=== PATIENT | male | born 1995 | race Caucasian/White ===

== ENCOUNTER 2020-04-12 11:03 | Outpatient (REF) | payer OTHER, SELFPAY | END 2020-04-12 11:04 | disposition home or self-care (01) | LOC: HO.LAB 11:03 | PROVIDERS: Visit Provider Internal Medicine | DX: Z20.828 Contact with and (suspected) exposure to other viral communicable diseases (principal) | CPT/HCPCS: C9803; U0003 ==

== ENCOUNTER → 2020-09-05 12:31 | Outpatient (BNVA) | payer OTHER, SELFPAY | PROVIDERS: Visit Provider Physician Assistant | DX: S39.012A Strain of muscle, fascia and tendon of lower back, initial encounter (principal); X50.3XXA Overexertion from repetitive movements, initial encounter | CPT/HCPCS: 99203 ==

== ENCOUNTER → 2020-09-08 13:00 | Outpatient (BNVA) | payer OTHER, SELFPAY | PROVIDERS: Visit Provider Physician Assistant Medical | DX: S39.012A Strain of muscle, fascia and tendon of lower back, initial encounter (principal); X58.XXXA Exposure to other specified factors, initial encounter | CPT/HCPCS: 99213 ==

== ENCOUNTER → 2020-09-15 14:32 | Outpatient (BNVA) | payer OTHER, SELFPAY | PROVIDERS: Visit Provider Physician Assistant Medical | DX: S33.9XXA Sprain of unspecified parts of lumbar spine and pelvis, initial encounter (principal); X58.XXXA Exposure to other specified factors, initial encounter | CPT/HCPCS: 99213 ==

== ENCOUNTER → 2020-10-06 15:36 | Outpatient (BNVA) | payer OTHER, SELFPAY | PROVIDERS: Visit Provider Physician Assistant Medical | DX: S33.9XXD Sprain of unspecified parts of lumbar spine and pelvis, subsequent encounter (principal); X58.XXXD Exposure to other specified factors, subsequent encounter; M54.17 Radiculopathy, lumbosacral region | CPT/HCPCS: 99213 ==

== ENCOUNTER 2020-10-18 16:00 | Outpatient (RCR) | payer OTHER, SELFPAY ==
--- NOTE | 2020-09-25 14:59 | MHC.PT.EP ---
[facility] [place] Office [place] [facility] [place] Office [address] Lacy Perez [address] [phone] F: [phone] F: [phone] F: [phone] F: [phone] Physical Therapy Plan of Care Date of Evaluation: Date of Surgery: NA Diagnosis: Lumbar spine strain with radiculopathy Assessment: 25 year old male referred for lumbar spine strain with radiculopathy . Pt injured himself at work about 4 weeks back while transferring boxes from floor to a table which was waist height. On PT examination pt was presented with 5/10 pain in the center of back, decreased trunk ROM, decreased muscle strength, altered posture and gait. He demonstrate extension direction preference. He would benefit from skilled PT to address the aforementioned impairments to increase his tolerance to sitting, standing, walking, sleeping, lifting heavy weight, bending forwards and returning to PLOF. Frequency and Duration: The patient will be seen 2/week for 5 weeks. Short Term Goals: 1. Pt will have 50% decrease in pain so as to increase his tolerance to sitting in 2 weeks. 2. Pt will demonstrated good awareness of sitting posture and be able to check and correct self every 30 minutes in 2 weeks. 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 2. Pt will demonstrate an increase in muscle strength by 1 grade which will enable him to transfer weights from floor (job requirements) without pain in 4 weeks. 3. Pt will be independent with all HEPS for symptoms management and maintenance following d/c in 5 weeks. 4. Pt will return to PLOF in 5 weeks. Treatment Plan: Modalities to reduce pain, spasms and effusion. Manual therapy to restore motion and function. Therapeutic exercise to improve strength and flexibility. Neuromuscular re-education for posture and balance. Therapeutic activities to return to functional activities of daily living. Electronically signed by: Amanda Sorenson, PT, DPT Please sign and return to therapist. Thank you for your referral.
--- NOTE | 2020-10-25 15:47 | MHC.PT.DC ---
[facility] [place] Office [place] Office [place] Office [address] [phone] F: [phone] F: [phone] F: [phone] F: [phone] Physical Therapy Discharge Report Diagnosis: Lumbar spine strain with radiculopathy Date of Surgery: NA Date of Evaluation: 09/25/20 Date of Discharge: 10/25/20 Treatments to Date: 4 Cancellations to Date: 0 No Shows to Date: 0 Discharge Status: Patient Elected to Stop Discharge Summary: Pt called and self d/c himself. He stated he has been feeling better and therefore decided to stop therapy. Electronically signed by: Amanda Sorenson PT DPT Please sign and return to therapist. Thank you for your referral.
== END 2020-10-25 15:49 | disposition other institution (70) ==
LOC: HO.PT 16:00
PROVIDERS: Visit Provider Physician Assistant Medical
DX: S39.012A Strain of muscle, fascia and tendon of lower back, initial encounter (principal); M54.17 Radiculopathy, lumbosacral region
CPT/HCPCS: 97110; 97112; 97140; 97161

== ENCOUNTER → 2020-10-20 14:29 | Outpatient (BNVA) | payer OTHER, SELFPAY | PROVIDERS: Visit Provider Physician Assistant Medical | DX: S33.5XXD Sprain of ligaments of lumbar spine, subsequent encounter (principal); X58.XXXD Exposure to other specified factors, subsequent encounter | CPT/HCPCS: 99213 ==

== ENCOUNTER 2021-05-31 10:51 | Outpatient (REF) | payer OTHER, SELFPAY ==
[2021-05-31 12:11] LABS: COVID-19 Test Negative (Negative)
== END 2021-05-31 10:52 | disposition home or self-care (01) ==
LOC: HO.LAB 10:51
PROVIDERS: Visit Provider Internal Medicine
DX: Z20.822 Contact with and (suspected) exposure to COVID-19 (principal)
CPT/HCPCS: 87635; C9803

== ENCOUNTER 2022-04-23 13:01 | Emergency (ER) | payer OTHER, SELFPAY ==
--- NOTE | ~2022-04-23 | XR_ITS ---
EXAMINATION: XR ANKLE, LEFT CLINICAL INFORMATION: Pain. Twisting injury COMPARISON: Previous left ankle x-ray October 2015 TECHNIQUE: AP, lateral, and mortise views of the left ankle. FINDINGS: Bone alignment is normal. No acute fracture or dislocation. Well-corticated ossification inferior to the medial malleolus likely related to old trauma. Lateral soft tissue swelling. There may be a small ankle joint effusion. XR/XR ankle LT min 3V IMPRESSION: No acute fracture or dislocation. Lateral soft tissue swelling.
[2022-04-23 16:07] VITALS: BP 119/76; PULSE 75; RESP 18; TEMP 36.6; O2SAT 96; BMI 28.7
--- NOTE | 2022-04-23 16:07 | ED_ITS ---
HPI - General Adult General Chief complaint: Extremity Injury, Lower <Lola Brothers MD - Last Filed: 04/23/22 16:09> Stated complaint: L Ankle Injury Work Related 04/23/22 <Lola Brothers MD - Last Filed: 04/23/22 16:09> Time Seen by Provider: 04/23/22 16:39 <Lola Brothers MD - Last Filed: 04/23/22 16:09> Source: patient <FELISA Grady - Last Filed: 04/23/22 16:54> Mode of arrival: ambulatory <FELISA Grady - Last Filed: 04/23/22 16:54> Limitations: no limitations <FELISA Grady - Last Filed: 04/23/22 16:54> History of Present Illness HPI narrative: 27-year-old male presents to the emergency department with complaints of left ankle pain and swelling times a few hours.? 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 Worse with ambulation better at rest.? Patient tells me his been progressively worsening in terms of pain.? Patient was ambulatory into the department with a limp.? Denies numbness or tingling at this time, fevers and chills.? Denies previous injuries to that left ankle, no previous surgeries to the left ankle.? No other injuries. To note patient currently has a workman's comp case for left lower back pain which has been going on for a few months, patient reports that since then he has been having numbness to his foot he is receiving care for this complaint, denies any saddle paresthesias, numbness and tingling at this time, fevers, chills, urinary/bladder incontinence/retention, midline pain, IV drug abuse. <FELISA Grady - Last Filed: 04/23/22 16:54> Related Data Allergies/adverse reactions: Allergies Allergy/AdvReac Type Severity Reaction Status Date / Time No Known Allergies Allergy Unverified 02/10/20 17:35 <Lola Brothers MD - Last Filed: 04/23/22 16:09> Review of Systems Review of Systems: Constitutional : No Weight loss, No Fever, No Chills, No Fatigue, No Malaise ENT/Mouth : No sore throat, No Rhinorrhea Eyes: No Eye Pain, No Swelling, No Redness Cardiovascular : No Chest Pain, No SOB, No Dyspnea on Exertion, No Orthopnea, No Edema, No Palpitations Respiratory : No Cough, No Sputum, No Wheezing Gastrointestinal : No Nausea, No Vomiting, No Diarrhea, No Constipation, No abdominal Pain, No Hematochezia, No Melena Genitourinary : No Dysuria, No Urinary Frequency, No Hematuria, Musculoskeletal : + joint pain, No Myalgias, + Joint Swelling Skin : No Skin Lesions, No rash Neuro : No Weakness, No Numbness, No Dizziness, No Headache Psych : No Anxiety/Panic, No Depression <FELISA Grady - Last Filed: 04/23/22 16:54> Yes all other systems are reviewed and are negative <FELISA Grady - Last Filed: 04/23/22 16:54> [facility] Past Medical History Attestation statement: The following information was validated with the patient. <FELISA Grady - Last Filed: 04/23/22 16:54> Source: old records reviewed and nursing notes reviewed <FELISA Grady - Last Filed: 04/23/22 16:54> Social History Social History: Social History Advance Directives: No Advance Directives Information Provided: Yes <Lola Brothers MD - Last Filed: 04/23/22 16:09> Physical Exam ED Vital Signs: Vital Signs - 24 hr 04/23/22 16:07 Temperature 97.9 F Pulse Rate 75 Respiratory Rate 18 Blood Pressure 119/76 Pulse Oximetry 96 Oxygen Delivery Method Room Air BMI result Body Mass Index 28.7 <Lola Brothers MD - Last Filed: 04/23/22 16:09> Vital Signs - 24 hr 04/23/22 16:07 Temperature 97.9 F Pulse Rate 75 Respiratory Rate 18 Blood Pressure 119/76 Pulse Oximetry 96 Oxygen Delivery Method Room Air BMI result Body Mass Index 28.7 vss <FELISA Grady - Last Filed: 04/23/22 16:54> vss? Appearance: Alert.? Oriented X3.? No acute distress.? Head:? Normocephalic, atraumatic, no step-offs or deformities Eyes: Pupils equal, round and reactive to light.? Neck: Normal inspection.? Neck supple.? CVS: Normal heart rate and rhythm.? Pulses normal.? Respiratory: No respiratory distress.? Breath sounds normal.? Abdomen: Soft and nontender.? Skin: Skin warm and dry.? Normal skin color.? Normal skin turgor.? Extremities: No lower extremity edema.? No calf ttp.? 5/5 strength to bilateral upper and lower extremities 2+ DP,AT,PT pulses equal and bilateral. Left lateral soft tissue swelling . Normal sensation b/l. Normal right ankle. Back:? No midline tenderness, no C-spine tenderness, full range of motion, no CVA tenderness bilaterally Neuro: Oriented X 3.? No motor deficit.? No sensory deficit. CN 2-12 intact. DTRs intact. ? <FELISA Grady - Last Filed: 04/23/22 16:54> Course Course Course Narrative: 27M p/w injured ankle when twisted, no fall. GEN: Appears well, some pain. LEFT ANKLE: swelling, ttp at lateral malleolus XR negative, analgesics given. <Lola Brothers MD - Last Filed: 04/23/22 16:09> Reevaluation(s) Reevaluation #1: Xray w/ sprain educated on rice. advised to return w/ new or worsning sx. Will give ortho referal may require MRI for futher eval. Strict return percautions given outlined on DC <FELISA Grady - Last Filed: 04/23/22 16:54> Time: 16:53 <FELISA Grady - Last Filed: 04/23/22 16:54> Medications Administered Discontinued Medications Generic Name Dose Route Start Last Admin Trade Name Freq PRN Reason Stop Dose Admin Acetaminophen 975 mg 04/23/22 16:08 04/23/22 16:13 Acetaminophen 325 Mg Tablet PO 04/23/22 16:09 975 mg ONCE ONE Administration Ibuprofen 400 mg 04/23/22 16:08 04/23/22 16:13 Ibuprofen 400 Mg Tablet PO 04/23/22 16:09 400 mg ONCE ONE Administration <Lola Brothers MD - Last Filed: 04/23/22 16:09> Medications Administered Discontinued Medications Generic Name Dose Route Start Last Admin Trade Name Roula PRN Reason Stop Dose Admin Acetaminophen 975 mg 04/23/22 16:08 04/23/22 16:13 Acetaminophen 325 Mg Tablet PO 04/23/22 16:09 975 mg ONCE ONE Administration Ibuprofen 400 mg 04/23/22 16:08 04/23/22 16:13 Ibuprofen 400 Mg Tablet PO 04/23/22 16:09 400 mg ONCE ONE Administration <FELISA Grady - Last Filed: 04/23/22 16:54> Medical Decision Making MDM Narrative Medical decision making narrative: 1645 27 year old male presents w/ Lt ankle pain and swellng X few hours s/p rolling his ankle. PE w/ lateral left soft tissue swelling.? NV intact. Ambulating w/ a limp favoring right side. Likley strain/ sprain. No signs of NV compromise. Unlikley fx or dislocation? but will rule out.? Lower back pain chronic in nature patient currently receiving care for this, no new injuries, no saddle paresthesias red flag symptoms unlikely cauda equina or epidural abscess. Plan- imaging. <FELISA Grady - Last Filed: 04/23/22 16:54> Critical Care Time Critical Care Time Critical Care Time: No <FELISA Grady - Last Filed: 04/23/22 16:54> Discharge Plan Discharge Clinical Impression: Ankle sprain and strain <Lola Brothers MD - Last Filed: 04/23/22 16:09> Patient Disposition: Home, Self-Care <Lola Brothers MD - Last Filed: 04/23/22 16:09> Instructions: Ankle Sprain (ED), Crutch Instructions (ED), Sprain (ED), R.I.C.E. Treatment (ED) <Lola Brothers MD - Last Filed: 04/23/22 16:09> Additional Instructions: Take your medications as prescribed. If you were prescribed antibiotics today, it is important that you take your medication to their entirety, do not skip any doses, do not finish them early. Follow-up with your primary care provider this week. Follow up with orthopedics. RICE, use crutches as prescribed Return to the emergency department with new or worsening symptoms. Such as fevers, chills, chest pain, shortness of breath, nausea, vomiting, dizziness, headache, vision changes, lethargy In case of emergency call 911 Take ibuprofen every 6 hours, tylenol every 4 hours for pain or discomfort . XR/XR ankle LT min 3V IMPRESSION: No acute fracture or dislocation. Lateral soft tissue swelling. <Lola Brothers MD - Last Filed: 04/23/22 16:09> Referrals: [facility] [place]Provider Group] - 1 week Physician,None [Primary Care Provider] - 2 days <Lola Brothers MD - Last Filed: 04/23/22 16:09> Stand Alone Forms: Work/School Release <Lola Brothers MD - Last Filed: 04/23/22 16:09>
[2022-04-23] MEDS: Acetaminophen 325 MG TABLET 975 MG PO (16:13)
[2022-04-23] MEDS: Ibuprofen 400 MG TABLET PO (16:13)
--- NOTE | 2022-04-23 16:41 | ED.LOWEXIN ---
HPI - Extremity Injury (Lower) General Chief Complaint: Extremity Injury, Lower Stated Complaint: L Ankle Injury Work Related 04/23/22 Time Seen by Provider: 04/23/22 16:39 Source: patient Mode of arrival: ambulatory Limitations: no limitations History of Present Illness HPI Narrative: 27-year-old male presents to the emergency department with complaints of left ankle pain and swelling times a few hours. 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 Worse with ambulation better at rest. Patient tells me his been progressively worsening in terms of pain. Patient was ambulatory into the department with a limp. Denies numbness or tingling at this time, fevers and chills. Denies previous injuries to that left ankle, no previous surgeries to the left ankle. No other injuries. To note patient currently has a workman's comp case for left lower back pain which has been going on for a few months, patient reports that since then he has been having numbness to his foot he is receiving care for this complaint, denies any saddle paresthesias, numbness and tingling at this time, fevers, chills, urinary/bladder incontinence/retention, midline pain, IV drug abuse. Related Data Allergies Allergy/AdvReac Type Severity Reaction Status Date / Time No Known Allergies Allergy Unverified 02/10/20 17:35 Review of Systems Review of Systems: Constitutional : No Weight loss, No Fever, No Chills, No Fatigue, No Malaise ENT/Mouth : No sore throat, No Rhinorrhea Eyes: No Eye Pain, No Swelling, No Redness Cardiovascular : No Chest Pain, No SOB, No Dyspnea on Exertion, No Orthopnea, No Edema, No Palpitations Respiratory : No Cough, No Sputum, No Wheezing Gastrointestinal : No Nausea, No Vomiting, No Diarrhea, No Constipation, No abdominal Pain, No Hematochezia, No Melena Genitourinary : No Dysuria, No Urinary Frequency, No Hematuria, Musculoskeletal : + joint pain, No Myalgias, + Joint Swelling Skin : No Skin Lesions, No rash Neuro : No Weakness, No Numbness, No Dizziness, No Headache Psych : No Anxiety/Panic, No Depression All other systems reviewed and are negative Yes all other systems are reviewed and are negative [facility] Past Medical History Attestation statement: The following information was validated with the patient. Source: old records reviewed and nursing notes reviewed Social History Social History Advance Directives: No Advance Directives Information Provided: Yes Physical Exam Vital Signs: Vital Signs: Last Vital Signs Temp 97.9 F 04/23/22 16:07 Pulse 75 04/23/22 16:07 Resp 18 04/23/22 16:07 BP 119/76 04/23/22 16:07 Pulse Ox 96 04/23/22 16:07 O2 Del Method 04/23/22 16:07 BMI result Body Mass Index 28.7 vss Appearance: Alert.? Oriented X3.? No acute distress.? Head: Normocephalic, atraumatic, no step-offs or deformities Eyes: Pupils equal, round and reactive to light.? Neck: Normal inspection.? Neck supple.? CVS: Normal heart rate and rhythm.? Pulses normal.? Respiratory: No respiratory distress.? Breath sounds normal.? Abdomen: Soft and nontender.? Skin: Skin warm and dry.? Normal skin color.? Normal skin turgor.? Extremities: No lower extremity edema.? No calf ttp. 5/5 strength to bilateral upper and lower extremities 2+ DP,AT,PT pulses equal and bilateral. Left lateral soft tissue swelling . Normal sensation b/l. Normal right ankle. Back: No midline tenderness, no C-spine tenderness, full range of motion, no CVA tenderness bilaterally Neuro: Oriented X 3.? No motor deficit.? No sensory deficit. CN 2-12 intact. DTRs intact. Course Reevaluation(s) Reevaluation #1: X-ray of left ankle showing lateral soft tissue swelling consistent with ankle sprain. No fractures or dislocations. Will be given an Santiago wrap and crutches. Educated on rice, will discharge home with ortho follow-up. Advised to return with new or worsening symptoms, educated on worrisome signs and symptoms. Comfortable discharge. Time: 16:45 Medications Administered Discontinued Medications Generic Name Dose Route Start Last Admin Trade Name Freq PRN Reason Stop Dose Admin Acetaminophen 975 mg 04/23/22 16:08 04/23/22 16:13 Acetaminophen 325 Mg Tablet PO 04/23/22 16:09 975 mg ONCE ONE Administration Ibuprofen 400 mg 04/23/22 16:08 04/23/22 16:13 Ibuprofen 400 Mg Tablet PO 04/23/22 16:09 400 mg ONCE ONE Administration MDM - Extremity Injury (Lower) MDM Narrative Medical decision making narrative: 1645 27 year old male presents w/ Lt ankle pain and swellng X few hours s/p rolling his ankle. PE w/ lateral left soft tissue swelling. NV intact. Ambulating w/ a limp favoring right side. Likley strain/ sprain. No signs of NV compromise. Unlikley fx or dislocation but will rule out. Lower back pain chronic in nature patient currently receiving care for this, no new injuries, no saddle paresthesias red flag symptoms unlikely cauda equina or epidural abscess. Plan- imaging. Medical Records Attestation: I reviewed the patient's medical records. Lab Data Attestation: I reviewed the patient's lab results. Critical Care Time Critical Care Time Critical Care Time: No Discharge Plan Discharge Clinical Impression: Ankle sprain and strain Patient Disposition: Home, Self-Care Instructions: Ankle Sprain (ED), Crutch Instructions (ED), Sprain (ED), R.I.C.E. Treatment (ED) Additional Instructions: Take your medications as prescribed. If you were prescribed antibiotics today, it is important that you take your medication to their entirety, do not skip any doses, do not finish them early. Follow-up with your primary care provider this week. Follow up with orthopedics. RICE, use crutches as prescribed Return to the emergency department with new or worsening symptoms. Such as fevers, chills, chest pain, shortness of breath, nausea, vomiting, dizziness, headache, vision changes, lethargy In case of emergency call 911 Take ibuprofen every 6 hours, tylenol every 4 hours for pain or discomfort . XR/XR ankle LT min 3V IMPRESSION: No acute fracture or dislocation. Lateral soft tissue swelling. Referrals: Physician,None [Primary Care Provider] - 2 days [facility] [place]Provider Group] - 1 week Stand Alone Forms: Work/School Release
== END 2022-04-23 16:58 | disposition home or self-care (01) ==
PROVIDERS: Emergency Provider Student in an Organized Health Care Education/Training Program
DX: S93.402A Sprain of unspecified ligament of left ankle, initial encounter (principal); X50.1XXA Overexertion from prolonged static or awkward postures, initial encounter; Y93.9 Activity, unspecified; Y92.9 Unspecified place or not applicable; Y99.0 Civilian activity done for income or pay
CPT/HCPCS: 73610; 99283

== ENCOUNTER 2022-04-30 07:59 | Emergency (ER) | payer OTHER, SELFPAY ==
[2022-04-30 08:12] VITALS: BP 127/82; PULSE 75; RESP 14; TEMP 36.1; O2SAT 100; BMI 28.7
--- NOTE | 2022-04-30 10:08 | ED_ITS ---
HPI - Extremity Injury (Lower) General Chief Complaint: Extremity Injury, Lower Stated Complaint: L foot redness Time Seen by Provider: 04/30/22 10:03 Source: patient Mode of arrival: ambulatory (With crutches) Limitations: no limitations History of Present Illness HPI Narrative: Patient is a 27-year-old male presents to the emergency department requesting an extended work note. He was seen in the emergency department 04/23/2022 for an ankle sprain. He was advised to follow-up with orthopedics. His appointment is scheduled for 05/06/2022. His work note that he was initially given only covered him until today. Continues to have pain, swelling, inability to bear weight on the left ankle. Overall it is improving but he does not feel well enough to return. Denies any numbness tingling or cold sensation to the foot. Related Data Allergies Allergy/AdvReac Type Severity Reaction Status Date / Time No Known Allergies Allergy Unverified 02/10/20 17:35 Review of Systems Review of Systems: Musculoskeletal: Positive ankle pain and swelling; left, as noted in HPI Yes all other systems are reviewed and are negative [facility] Past Medical History Attestation statement: The following information was validated with the patient. Source: old records reviewed Social History Social History Advance Directives: No Advance Directives Information Provided: No Physical Exam Vital Signs: Vital Signs: Last Vital Signs Temp 96.9 F 04/30/22 08:12 Pulse 75 04/30/22 08:12 Resp 14 04/30/22 08:12 BP 127/82 04/30/22 08:12 Pulse Ox 100 04/30/22 08:12 O2 Del Method 04/30/22 08:12 BMI result Body Mass Index 28.7 Appearance: Alert.?Oriented to person, place and time. No acute distress.?Normal affect. Neck: Normal inspection.? Neck supple.?? CVS: Heart sounds normal. Normal heart rate and rhythm.? Pulses normal.?? Respiratory: No respiratory distress.? Lung sounds clear to auscultation bilaterally?? Skin: Skin warm and dry.? Normal skin color.? Extremities: Localized swelling to left ankle. 2+ DP/PT pulse bilaterally. Resolving bruise inferior to medial malleoli, bruising to anterior ankle.? No calf ttp? Neuro: Moves all extremities spontaneously. Sensation intact bilaterally. Ambulates with use of crutches, minimal weight-bearing to the left. Medical Decision Making Medical Decision Making MDM Narrative: Patient is a 27-year-old male with no pertinent past medical history presenting to emergency department for re-evaluation of an ankle sprain requiring a work note. Has not yet followed up with Orthopedics as an appointment scheduled. Extremity is neurovascularly intact distally at this time. Advised continued R.I.C.E., and acetaminophen/ibuprofen as needed for pain, crutches/weight- bearing as tolerated. Provided with a work note to cover until evaluation from Orthopedics. All questions answered. Patient discharged in stable condition. Discharge Plan Discharge Clinical Impression: Ankle sprain and strain Patient Disposition: Home, Self-Care Stand Alone Forms: Work/School Release
--- NOTE | 2022-04-30 10:29 | PC.NURSE ---
PT AMBULATORY INTO [facility] WITH CRUTCHES. REPORTS THAT HE HAS AN APPT WITH ORTHO ON 05/06. STATES THAT HE STILL DOES NOT FEEL THAT HE CAN ATTEND WORK. EVALUATED BY PROVIDER. PLAN IS FOR DC HOME WITH NOTE TO BE OUT UNTIL THE WHEN HE SEES THE ORTHO PROVIDER. PT AGREEABLE TO PLAN.
== END 2022-04-30 10:31 | disposition home or self-care (01) ==
PROVIDERS: Emergency Provider Emergency Medicine
DX: S93.402A Sprain of unspecified ligament of left ankle, initial encounter (principal); X58.XXXA Exposure to other specified factors, initial encounter; Y93.9 Activity, unspecified; Y92.9 Unspecified place or not applicable; Y99.9 Unspecified external cause status
CPT/HCPCS: 99282

== ENCOUNTER → 2022-06-10 12:55 | Outpatient (BNVA) | payer OTHER, SELFPAY | PROVIDERS: Visit Provider Physician Assistant | DX: S93.402D Sprain of unspecified ligament of left ankle, subsequent encounter (principal) | CPT/HCPCS: 99212 ==

== ENCOUNTER 2022-10-01 03:06 | Emergency (ER) | payer OTHER, SELFPAY ==
[2022-10-01 03:07] VITALS: BP 132/78; PULSE 77; RESP 18; TEMP 36.2; O2SAT 95; BMI 24.4
--- NOTE | 2022-10-01 04:05 | PC.NURSE ---
Pt aox4 resting at the bedside in no apparent distress. Reports right ear pain, 7/10, that started yesterday. No drainage or swelling noted on the right ear. No decrease in hearing. Pending physician agustin. Pt aware.
--- NOTE | 2022-10-01 04:58 | ED.EAR ---
HPI - Ear Problem General Chief complaint: Ear Problems Stated complaint: ?Ear infection, right ear pain Time Seen by Provider: 10/01/22 04:07 History of Present Illness HPI Narrative: Patient is a 27-year-old male presents today with having earache on the right side. Symptoms ongoing for 2 days. Feels pressure in the ear. No fever no chills. No systemic complain of. Patient tried to use some ear drops but to no avail. Related Data Previous Rx's Medication Instructions Recorded azithromycin 250 mg tablet See Rx Instructions PO .COMPLEX 10/01/22 upper resp infection #6 tabs ibuprofen 400 mg tablet 400 mg PO Q6H PRN pain #20 tabs 10/01/22 Allergies Allergy/AdvReac Type Severity Reaction Status Date / Time No Known Allergies Allergy Unverified 06/10/22 13:02 Review of Systems Review of Systems: Positive right ear pain. No change in voice. No difficulty breathing. Yes all other systems are reviewed and are negative PMFSH Past Medical History Attestation statement: The following information was validated with the patient. Social History Social History Patient Tobacco Use Status: Never used Tobacco Smoked in Last 30 Days: No Use of substances other than those prescribed or required for medical reasons: No Advance Directives: No Advance Directives Information Provided: Yes Current occupational status: employed Current occupation: [employer] Physical Exam Vital Signs: Vital Signs: Last Vital Signs Temp 97.2 F 10/01/22 03:07 Pulse 77 10/01/22 03:07 Resp 18 10/01/22 03:07 BP 132/78 10/01/22 03:07 Pulse Ox 95 10/01/22 03:07 O2 Del Method Room Air 10/01/22 03:07 BMI result Body Mass Index 24.4 Appearance: Alert. Oriented X3. No acute distress. Eyes: Pupils equal, round and reactive to light. ENT: Pharynx normal. TM on the right side intact. Minimal redness noted. No bulging eardrums. Question fluid behind the eardrum. No loss of landmarks. No mastoid tenderness. No tenderness on palpation of the parotid Neck: Normal inspection. Neck supple. No lymph nodes noted. No crepitus CVS: Normal heart rate and rhythm. Pulses normal. Normal S1 and S2 Respiratory: No respiratory distress. Breath sounds normal. No Wheezing. No rales Abdomen: Soft and nontender. No rigidity. No distention. good BS x4 Skin: Skin warm and dry. Normal skin color. Normal skin turgor. Extremities: No lower extremity edema. Neurovascular intact to all extremities. No Lacerations. No Rash Neuro: Oriented X 3. No motor deficit. No sensory deficit. Moving all extermities. No slurred speech Medical Decision Making Medical Decision Making MDM Narrative: Well-appearing no acute distress. Question very early otitis media, congestion will give patient Z-Darin and Motrin. In stable condition. Differential Diagnosis Malignant otitis media, prior tightest, otitis externa Discharge Plan Discharge Clinical Impression: Otitis media Patient Disposition: Home, Self-Care Instructions: Ear Infection (ED) Prescriptions: New azithromycin 250 mg tablet See Rx Instructions .ROUTE .COMPLEX Qty: 6 0RF Rx Instructions: take 500 mg today (day 1), then 250 mg for 4 days (days 2-5) ibuprofen 400 mg tablet 400 mg PO Q6H PRN (Reason: pain) Qty: 20 0RF Referrals: Physician,None [Primary Care Provider] - 10/08/22
== END 2022-10-01 05:13 | disposition home or self-care (01) ==
PROVIDERS: Emergency Provider Emergency Medicine Emergency Medical Services
DX: H66.91 Otitis media, unspecified, right ear (principal); H92.01 Otalgia, right ear
CPT/HCPCS: 99283

== ENCOUNTER 2025-02-23 11:28 | Outpatient (AMB) | payer OTHER, SELFPAY ==
--- NOTE | 2025-02-23 11:41 | MHC.PC.OV ---
Vital Signs 02/23/25 11:43 Height 5 ft 10.08 in Weight 199 lb 8 oz BMI 28.6 BP 100/64 Blood Pressure Location Rt brachial Position Sitting Pulse 83 Pulse Source Pulse Oximeter Temp 97.1 F Temp Source Temporal Artery Scan Pulse Oximetry (%) 97 Oxygen Delivery Method Room Air Intake Visit Reasons: establish care Intake Note: Patient is a new patient here to establish care for High protein in urine. Transferring care from [facility] ([facility]). Medical records have been requested and have not received. Flavoring Oil Filterer Required: No Collection Manager: Not Required per policy Accompanied by: Self / Same As Patient Allergies No Known Allergies Allergy (Verified 02/23/25 11:54) Medication List - Last Reconciled 02/23/25 by DARIANA Mendoza No Known Home Meds Tobacco use date assessed: 02/23/25 Dental Screening Dental Screen Date: 02/23/25 Did you have a dental visit in the last 12 months?: Yes Did you have a dental problem in the last 6 months where you did not have access to dental care?: No Was dental information given to patient?: Patient has dentist HPI establish care HPI Details [facility]CP: [facility] Last visit:about 9 years Last PE: same Specialist: NO OBGYN:n/a Past medical history: Medications: Family HX:paternal grandfather DM, paternal aunt HTN Problem: reports seasonal allergies. The patient is a 29-year-old male presenting with nausea and vomiting. He reports nausea and vomiting triggered by certain foods, with no specific identifiable triggers, occurring less frequently now than initially. The patient denies heartburn, diarrhea, constipation, or bloating, but notes dizziness after extended physical exertion, likely due to dehydration. He drinks about four bottles of water daily, which may be inadequate for his activity level. Family history includes diabetes mellitus on the paternal side and hypertension in his father and aunt. He has no personal history of chronic diseases, is not on medication, and has no allergies. The patient is sexually active with one partner and does not smoke or frequently consume alcohol. 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 Reports that when he eat certain things he will vomiting after, reports before couple months ago this was happening every day. Reports this is happening maybe two times a week currently. 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 1. Little interest or pleasure in doing things: not at all 2. Feeling down, depressed, or hopeless: not at all 3. Trouble falling or staying asleep, or sleeping too much: not at all 4. Feeling tired or having little energy: not at all 5. Poor appetite or overeating: not at all 6. Feeling bad about yourself - or that you are a failure or have let yourself or your family down: not at all 7. Trouble concentrating on things, such as reading the newspaper or watching television: not at all 8. Moving or speaking so slowly that other people could have noticed. Or the opposite - being so fidgety or restless that you have been moving around a lot more than usual: not at all 9. Thoughts that you would be better off or of hurting yourself in some way: not at all Total score: 0 Depression Screening Interpretation: Negative Depression Screening Done: Yes 41566 - PHQ-9 Billing: Yes Source: Developed by Drs. Jair Dumont, Rochelle Siddiqui, Mikhail Alonzo and colleagues, with an educational rasheeda from [employer]. Thrive Questionnaire Date Thrive assessed: 02/23/25 I am a: Patient What is your living situation today?: I have a steady place to live Within the past 12 months, did the food you bought not last and you didn't have the money to get more?: I choose not to answer this question Within the past 12 months, did you worry whether your food would run out before you got money to buy more?: I choose not to answer this question Do you have trouble paying for medicines?: I choose not to answer this question Do you have trouble getting transportation to medical appointments?: I choose not to answer this question Do you have trouble paying your heating and electricity bill?: I choose not to answer this question Do you have trouble taking care of your child, family member or friend?: I choose not to answer this question Do you have trouble with day-to-day activities such as bathing, preparing meals, shopping, managing finances, etc.?: No Are you currently unemployed and looking for a job?: I choose not to answer this question Are you interested in more education?: I choose not to answer this question Please select the resources that you would like help with: None Currently or been in a relationship where the following occur: I choose not to answer THRIVE Score: 0 AUDIT C Alcohol Use Questionnaire (AUDIT-C) 1. How often do you have a drink containing alcohol?: Never Total Score: 0 MARCELINA-7 AMB Questionnaire MARCELINA-7 Date MARCELINA - 7 assessed: 02/23/25 Feeling nervous, anxious, or on edge: 0 = Not at all Not being able to stop or control worryin = Not at all Worrying too much about different things: 0 = Not at all Trouble relaxin = Not at all Being so restless that it is hard to sit still: 0 = Not at all Becoming easily annoyed or irritable: 1 = Several days Feeling afraid as if something awful might happen: 0 = Not at all Total MARCELINA-7 score (0-4 normal; 5-9 mild; 10-14 moderate; 15-21 severe): 1 Source: Developed by Drs. Jair Dumont, Rochelle Siddiqui, Mikhail Alonzo and colleagues, with an educational rasheeda from [employer]. MARCELINA-7 Assessment Billing MARCELINA-7 Assessment Tool: MARCELINA-7 Assessment 27498 Review of Systems Const Denies headache(s) Eyes Denies loss of vision ENT Denies vertigo, Reports dizziness (After extensive workup), Denies headache(s) and Denies sore throat Card Denies chest pain, Denies leg edema and Denies lightheadedness Resp Denies cough, Denies hemoptysis and Denies wheezing GI Denies abdominal pain, Denies melena, Denies constipation, Denies diarrhea, Reports nausea (After certain foods) and Reports vomiting (After certain foods) Denies dysuria, Denies urinary frequency and Denies urinary urgency Musc Denies arthralgias, Denies joint swelling, Denies numbness and Denies tingling Neuro Denies Abnormal speech present, Denies behavioral changes, Denies vertigo, Reports dizziness (After extensive workup), Denies headache(s), Denies loss of vision, Denies memory loss, Denies numbness and Denies tingling Psych Denies anxiety, Denies behavioral changes, Denies depression, Denies memory loss and Denies panic attacks José/Lymph Denies easy bleeding and Denies easy bruising Aller/Immun Denies wheezing Physical exam (Primary Care) Vital Signs: Last Vital Signs Temp 97.1 F 02/23/25 11:43 Pulse 83 02/23/25 11:43 BP 100/64 02/23/25 11:43 Pulse Ox 97 02/23/25 11:43 Oxygen Delivery Method Room Air 02/23/25 11:43 BMI result Body Mass Index 28.6 Tobacco/Smoking Status: Tobacco use Status Tobacco use date assessed 02/23/25 02/23/25 11:52 Patient Tobacco Use Status Never used Tobacco 02/23/25 11:52 e-Cigarette/Vaping Use Never Used 02/23/25 11:52 PHQ-9: PHQ-9 Score PHQ-9: Total score 0 02/23/25 12:01 Depression Screening Interpretation: Negative Thrive Assessment: Date of Thrive Assessment Date Thrive assessed 02/23/25 02/23/25 11:52 Currently or been in a relationship where the following occur: I choose not to answer Const General: healthy appearing, no acute distress, alert and awake Nutritional Appearance: well nourished Orientation/consciousness: oriented to person, oriented to place and oriented to time HENMT Ears: TM's normal bilaterally General nose exam: Normal nasal mucous membranes and turbinates present Eyes Conjunctivae: conjunctivae normal Sclerae: sclerae normal Pupils: Equal, round and reactive pupils present Neck Neck: Yes no lymphadenopathy and Yes no JVD Thyroid: Thyroid normal Carotids: no bruits Resp Effort & Inspection: normal respiratory effort and not tachypneic Auscultation: no crackles, no rales, no rhonchi and no wheezes Cardio Rate: regular rate Rhythm: regular rhythm Heart sounds: no murmurs and normal S1 and S2 GI Palpation (GI): Soft to palpation, nontender, no hepatomegaly and no splenomegaly Auscultation: normal bowel sounds General: Yes no CVA tenderness Back/Spine/Pelvis Back: no CVA tenderness Skin General skin exam: no rashes or lesions noted and dry skin Neuro General: oriented to person, oriented to place and oriented to time Cranial nerves: Yes Equal, round and reactive pupils present Speech: No Abnormal speech present Gait exam (Neuro): Normal gait present Motor exam (neuro): no tremor noted Extrem Right upper extremity: full ROM Left upper extremity: full ROM Right lower extremity: full ROM; no edema Left lower extremity: full ROM; no edema Psych Mental Status: mental status grossly normal Speech and movement: Normal speech and movement present Affect: normal affect Attitude: cooperative Thought process: Normal thought process present Coding Level of Care Code New Pt Level 4 (45981) Diagnoses Dizziness R42 Postprandial vomiting R11.10 Postprandial abdominal bloating R14.0 Proteinuria, unspecified type R80.9 Proteinuria type: unspecified Screening for STDs (sexually transmitted diseases) Z11.3 Additional Codes MARCELINA-7 Assessment Billing - MARCELINA-7 Assessment Tool: MARCELINA-7 Assessment 23252 ([id number]) PHQ-9 - 87642 - PHQ-9 Billing: Yes ([id number]) Time Spent (min) 39 Assessment & Plan Assessment & Plan (1) Dizziness: Code(s): R42 - Dizziness and giddiness Category: Medical Plan: The patient reports dizziness after extensive workouts. Denies being dizzy in other situations. Denies any associated symptoms. Expressed to the patient that this could be due to dehydration if he is not well hydrated while working out. The patient admits that he could drink more water. We will obtain labs to further evaluate. (2) Postprandial vomiting: Code(s): R11.10 - Vomiting, unspecified Category: Medical Plan: The patient experiences nausea and vomiting with certain foods, and omeprazole has been prescribed to address possible acid reflux. The patient will be monitored for changes in symptoms. (3) Postprandial abdominal bloating: Code(s): R14.0 - Abdominal distension (gaseous) Category: Medical Plan: Discussed with the patient extensively about FODMAP diet. Encouraged the patient to obtain labs 1st then initiate the FODMAP diet to see which foods are causing the sensitivity. (4) Proteinuria: Code(s): R80.9 - Proteinuria, unspecified Category: Medical Qualifiers: Proteinuria type: unspecified Qualified Code(s): R80.9 - Proteinuria, unspecified Plan: Proteinuria was identified, and a urinalysis will be conducted to exclude urinary tract infection. Additional lab tests will evaluate kidney function and screen for diabetes mellitus. (5) Screening for STDs (sexually transmitted diseases): Code(s): Z11.3 - Encounter for screening for infections with a predominantly sexual mode of transmission Category: Medical Plan: STD tests ordered Plan The patient to obtain labs and return in 7 weeks for complete physical Orders: Orders Hemoglobin A1c 02/23/25 R11.10 - Vomiting, unspecified, R14.0 - Abdominal distension (gaseous), R80.9 - Proteinuria, unspecified, Z00.00 - Encounter for general adult medical examination without abnormal findings Complete Blood Count Auto Diff 02/23/25 R11.10 - Vomiting, unspecified, R14.0 - Abdominal distension (gaseous), R80.9 - Proteinuria, unspecified, Z00.00 - Encounter for general adult medical examination without abnormal findings Comprehensive [place]. Panel Fast 02/23/25 R11.10 - Vomiting, unspecified, R14.0 - Abdominal distension (gaseous), R80.9 - Proteinuria, unspecified, Z00.00 - Encounter for general adult medical examination without abnormal findings TSH reflex Free T4 02/23/25 R11.10 - Vomiting, unspecified, R14.0 - Abdominal distension (gaseous), R80.9 - Proteinuria, unspecified, Z00.00 - Encounter for general adult medical examination without abnormal findings Lipid Panel 02/23/25 R11.10 - Vomiting, unspecified, R14.0 - Abdominal distension (gaseous), R80.9 - Proteinuria, unspecified, Z00.00 - Encounter for general adult medical examination without abnormal findings Transglutaminase Ab IgG Today R14.0 - Abdominal distension (gaseous) HIV Ab/Ag 02/23/25 R11.10 - Vomiting, unspecified, R14.0 - Abdominal distension (gaseous), R80.9 - Proteinuria, unspecified, Z00.00 - Encounter for general adult medical examination without abnormal findings, Z11.3 - Encounter for screening for infections with a predominantly sexual mode of transmission CT NG by PCR Urine 02/23/25 R11.10 - Vomiting, unspecified, R14.0 - Abdominal distension (gaseous), R80.9 - Proteinuria, unspecified, Z00.00 - Encounter for general adult medical examination without abnormal findings, Z11.3 - Encounter for screening for infections with a predominantly sexual mode of transmission Syphilis Screen 02/23/25 R11.10 - Vomiting, unspecified, R14.0 - Abdominal distension (gaseous), R80.9 - Proteinuria, unspecified, Z00.00 - Encounter for general adult medical examination without abnormal findings, Z11.3 - Encounter for screening for infections with a predominantly sexual mode of transmission UA CC w/rflx Micro + Cult 02/23/25 R11.10 - Vomiting, unspecified, R14.0 - Abdominal distension (gaseous), R80.9 - Proteinuria, unspecified, Z00.00 - Encounter for general adult medical examination without abnormal findings Vitamin D 25-OH Total 02/23/25 R11.10 - Vomiting, unspecified, R14.0 - Abdominal distension (gaseous), R80.9 - Proteinuria, unspecified, Z00.00 - Encounter for general adult medical examination without abnormal findings Medications: New omeprazole 40 mg PO DAILY 30 caps 3RF
[2025-02-23 11:43] VITALS: BP 100/64; PULSE 83; TEMP 36.2; O2SAT 97; BMI 28.6
--- OUTSIDE RECORDS SUMMARY | 2025-02-23 13:05 | XMS_ITS | Clinical Summary ---
Author Organization [employer] Address [address] [place] [address] [address] [place] [address] Care Team Providers Care Workers' Compensation Mediator Name Role Phone Unavailable Primary Care Provider Unavailabl e Social History Tobacco Use Types Packs/Day Years Used Date Smoking Tobacco: Never Assessed Sex and Gender Information Value Date Recorded Sex Assigned at Male 03/25/2022 10:20 AM EDT Legal Sex Male 10:20 AM EDT Gender Identity Male 03/25/2022 10:20 AM EDT Sexual Orientation Straight 03/25/2022 10 :20 AM EDT Plan of Treatment Health Maintenance Due Date Last Done Comments Depression Screening 1997 HIV Screening 1997 SDOH Screening 1997 Disability Screening 1997 Alcohol/Substance Use Screening 2009 Tobacco Screening 2009 Family Planning (PISQ) 2012 HPV Vaccines (1 - Male 3-dose series) 2012 Hepatitis C Screening 2015 DTaP/Tdap/Td Vaccines (1 - Tdap) 2016 Hepatitis B Vaccines (1 of 3 - 19+ 3-dose series) 2016 Dental X-Ray: Full Mouth 02/21/2020 02/19/2017, 11/2014 Dental Oral Exam 03/01/2022 08/29/2021, , 08/18/2017, Additional history exists Dental X-Ray: Bitewings 08/30/2022 08/30/19, 11/17/2018, 02/19/2017, Additional history exists Dental Prophylaxis 09/24/2022 03/26/2022, 0 08/29/2021, 07/13/2019, Additional history exists COVID-19 Vaccine ( - season) 2025 Influenza Vaccine (#1) 2025 Zoster Vaccines (1 of 2) 2047 RSV Patients and Patients Aged 60 years or older (1 - 1-dose 75+ series) 2072 HIB Vaccines Aged Out No longer eligi ble based on patient's age to complete this topic Hepatitis A Vaccines Aged Out No long er eligible based on patient's age to complete this topic IPV Vaccines Aged Out No longer eligi ble based on patient's age to complete this topic Meningococcal B Vaccine Aged Out No l onger eligible based on patient's age to complete this topic Meningococcal Vaccine Aged Out No marley jaswinder eligible based on patient's age to complete this topic Pneumococcal Vaccine: Pediatrics (0 to 5 Years) and At-Risk Patients (6 to 49) Years Aged Out No longer eligible based on patient's age to complete this topic RSV under 20 months Aged Out No longe r eligible based on patient's age to complete this topic Rotavirus Vaccines Aged Out No longer eligible based on patient's age to complete this topic Procedures Procedure Name Priority Date/Time Associated Diagnosis Comments PROPHYLAXIS - ADULT Routine 03/26/2022 1 2:00 AM EDT BITEWINGS - 4 RADIOGRAPHIC IMAGES Routine 08/29/2021 12:00 AM EDT PERIODIC ORAL EVALUATION - ESTABLISHED PATIENT Routine 08/29/2021 12:00 AM EDT INTRAORAL - COMPLETE SERIES OF RADIOGRAPHIC IMAGES Routine 02/19/2017 12:00 AM EDT from Last 3 Months or Most Recently Relevant to Health Maintenance Insurance [facility] MEDICAID STAND ADULT
--- OUTSIDE RECORDS SUMMARY | 2025-02-23 13:05 | XMS_ITS | Encounter Summary ---
Author Organization [employer] [facility] Address [address] [place] [address] [address] [place] [address] Care Team Providers Care Neuropsychologist Name Role Phone Unavailable Primary Care Provider Unavailabl e Encounter Details Date Type Department Care Team (Latest Contact Info) Description 01/06/2019 Abstract C CONVERSIONS Dental, Provider, DDS Social History Tobacco Use Types Packs/Day Years Used Date Smoking Tobacco: Never Assessed Sex and Gender Information Value Date Recorded Sex Assigned at Male 03/25/2022 10:20 AM EDT Legal Sex Male 10:20 AM EDT Gender Identity Male 03/25/2022 10:20 AM EDT Sexual Orientation Straight 03/25/2022 10 :20 AM EDT documented as of this encounter Plan of Treatment Not on file documented as of this encounter Visit Diagnoses Not on filedocumented in this encounter
--- OUTSIDE RECORDS SUMMARY | 2025-02-23 13:05 | XMS_ITS | Encounter Summary ---
Author Organization [employer] [facility] Address [address] [place] [address] [address] [place] [address] Care Team Providers Care Recordings Librarian Name Role Phone Unavailable Primary Care Provider Unavailabl e Encounter Details Date Type Department Care Team (Latest Contact Info) Description 08/29/2021 Abstract C CONVERSIONS Dental, Provider, DDS Social [...]
== END 2025-02-23 12:22 | disposition home or self-care (01) ==
LOC: HO.HMCH 11:29
DX: R42 Dizziness and giddiness (principal); R11.10 Vomiting, unspecified; R14.0 Abdominal distension (gaseous); R80.9 Proteinuria, unspecified; Z11.3 Encounter for screening for infections with a predominantly sexual mode of transmission

== ENCOUNTER → 2025-02-23 11:28 | Outpatient (BNVA) | payer OTHER, SELFPAY | DX: R42 Dizziness and giddiness (principal); R14.0 Abdominal distension (gaseous); R11.2 Nausea with vomiting, unspecified; R80.9 Proteinuria, unspecified | CPT/HCPCS: 96127 ==

== ENCOUNTER 2025-02-24 09:01 | Outpatient (REF) | payer OTHER, SELFPAY ==
[2025-02-24 09:16] LABS: MANUAL DIFF FLAG NO
[2025-02-24 09:34] LABS: Hematocrit 48.0 % (42.0-52.0); Hemoglobin 16.6 g/dl (14.0-18.0); Imm Gran Abs Auto 0.01 X10*3/uL (0.00-0.03); Imm Gran Pct Auto 0.2 % (0.0-0.4); Lymphocytes Absolute Auto 1.7 X10*3/uL (1.2-4.9); Mean Corpuscular HGB Conc 34.6 g/dl (31.0-36.0); Mean Corpuscular Hemoglobin 30.4 pg (27.0-33.0); Mean Corpuscular Volume 87.9 fL (80.0-98.0); NRBC Abs Auto 0.000 X10*3/uL (0.0-0.012); NRBC Pct Auto 0.0 /100WBC (0.0-0.2); Platelet Count 223 X10*3/uL (160-400); Red Blood Count 5.46 X10*6/uL (4.60-5.80); White Blood Count 4.5 X10*3/uL (4.8-10.8)
[2025-02-24 09:46] LABS: Hemoglobin A1C 149.8606 umol/L
--- OUTSIDE RECORDS SUMMARY | 2025-02-24 09:46 | XMS_ITS | Encounter Summary ---
Author Organization [employer] [facility] Address [address] [place] [address] [address] [place] [address] Care Team Providers Care Production Reproduction Manager Name Role Phone Unavailable Primary Care Provider [...]
--- OUTSIDE RECORDS SUMMARY | 2025-02-24 09:46 | XMS_ITS | Clinical Summary ---
Author Organization [employer] Address [address] [place] [address] [address] [place] [address] Care Team Providers Care Electronic Prepress System Operator Name Role Phone Unavailable Primary Care Provider [...] Most Recently Relevant to Health Maintenance Insurance [facility] MEDICAID STAND ADULT
--- OUTSIDE RECORDS SUMMARY | 2025-02-24 09:46 | XMS_ITS | Encounter Summary ---
Author Organization [facility] Address [address] [place] [address] [address] [place] [address] Care Team Providers Care Theater Teacher Name Role Phone Unavailable Primary Care Provider [...]
[2025-02-24 09:47] LABS: Appearance Urine Clear; Glucose Urine UA Negative (Negative); PH 7.0 (5.0-9.0); Specific Gravity - Urine 1.025 (1.005-1.025)
[2025-02-24 10:11] LABS: Alanine Aminotransferase 51 U/L (0-40); Albumin Level 4.9 g/dL (3.5-5.0); Alkaline Phosphatase 84 U/L (39-117); Anion Gap 11 (12-20); Aspartate Amino Transferase 25 U/L (5-37); Blood Urea Nitrogen 14 mg/dL (9-16); Calcium 9.6 mg/dL (8.4-10.2); Carbon Dioxide 29 mmol/L (22-29); Chloride 106 mmol/L (96-108); Cholesterol 212 mg/dL (<200); Estimated Glomerular Filt Rate > 60; HDL Cholesterol 45 mg/dL (>40); Potassium 4.3 mmol/L (3.3-5.1); Sodium 142 mmol/L (135-145); Total Protein 7.8 g/dL (6.5-8.0); Triglycerides 152 mg/dL (<150)
[2025-02-24 10:19] LABS: HIV Num 1 0.09 S/CO (0.00-0.99)
[2025-02-24 10:20] LABS: Syphilis Screen Nonreactive (Nonreactive)
[2025-02-24 11:40] LABS: CT PCR Urine NOT DETECTED (Not Detect.); NG PCR Urine NOT DETECTED (Not Detect.)
[2025-02-25 21:33] LABS: Transglutaminase Ab IgG <1.0 U/mL
== END 2025-02-24 09:02 | disposition home or self-care (01) ==
LOC: HO.LAB 09:01
DX: Z00.00 Encounter for general adult medical examination without abnormal findings (principal); Z11.3 Encounter for screening for infections with a predominantly sexual mode of transmission; Z13.6 Encounter for screening for cardiovascular disorders; Z13.29 Encounter for screening for other suspected endocrine disorder; Z13.1 Encounter for screening for diabetes mellitus; R14.0 Abdominal distension (gaseous); R11.10 Vomiting, unspecified; R80.9 Proteinuria, unspecified
CPT/HCPCS: 80053; 80061; 81003; 82306; 83036; 84443; 85025; 86364; 86780; 87389; 87491; 87591

== ENCOUNTER 2025-04-15 09:15 | Outpatient (AMB) | payer OTHER, SELFPAY ==
--- OUTSIDE RECORDS SUMMARY | 2025-04-15 09:36 | XMS_ITS | Clinical Summary ---
Author Organization [employer] Address [address] [place] [address] [address] [place] [address] Care Team Providers Care Otolaryngology Physician Name Role Phone Unavailable Primary Care Provider [...] Additional history exists COVID-19 Vaccine ( - 2024- season) 2025 Influenza Vaccine (#1) 2025 Zoster [...] Most Recently Relevant to Health Maintenance Insurance [facility] MEDICAID STAND ADULT
--- OUTSIDE RECORDS SUMMARY | 2025-04-15 09:36 | XMS_ITS | Encounter Summary ---
Author Organization [employer] [facility] Address [address] [place] [address] [address] [place] [address] Care Team Providers Care Carpentry Supervisor Name Role Phone Unavailable Primary Care Provider [...]
--- OUTSIDE RECORDS SUMMARY | 2025-04-15 09:36 | XMS_ITS | Encounter Summary ---
Author Organization [facility] Address [address] [place] [address] [address] [place] [address] Care Team Providers Care Supervisor [employer] Name Role Phone Unavailable Primary Care Provider [...]
--- NOTE | 2025-04-15 09:37 | A.OFFPC_ITS ---
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 Required: No Accompanied by: Self / Same As Patient Allergies No Known Allergies Allergy (Verified 04/15/25 09:46) Medication List - Last Reconciled 04/15/25 by DARIANA Mendoza omeprazole 40 mg PO DAILY Tobacco use date assessed: 04/15/25 Dental Screening Dental Screen Date: 04/15/25 Did you have a dental visit in the last 12 months?: Yes Did you have a dental problem in the last 6 months where you did not have access to dental care?: No Was dental information given to patient?: Patient has dentist HPI HPI Comments History of Present Illness Details History of Present Illness Dentist: up to date, November, Eye: He 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 Snellen: Right: Left: Corrected vision: no STI screening: completed Colonoscopy:n/a Pap Smer:n/a Flu: not usually COVID: x2 Tdap:not sure when he had this done, but would like to hold off for now Diet:regular diet, but reports that most of the foods that were mentioned on the high cholesterol list are on his menu. Exercise: Reports that he used to prior to straining his back The patient is a 30 year old individual presenting for a follow-up visit to review lab results and for general health maintenance. Recent lab work showed a complete blood count (CBC) with a white blood cell count that is slightly on the lower side, which is considered a normal variant for some individuals and not of immediate concern. Chemistry panel revealed good kidney function, normal electrolytes, and a normal HbA1c. Abnormal lab findings include an elevated liver enzyme, with a level of 51 where the normal range is 0-40. Potential causes were explored, including alcohol use (a few times a month), and Tylenol (Tidin) use (infrequently, about two pills), which were considered unlikely to be the cause. The patient confirmed recent weight gain, which is also a potential contributor. The lipid panel was notable for hyperlipidemia, with triglycerides slightly elevated at 152 mg/dL (target <150) and an LDL cholesterol of 137 mg/dL (target <100). Additionally, the patient was found to have a low vitamin D level, which is a common finding. The patient previously had stomach issues, which have since improved. Testing for gluten sensitivity was negative. The patient reports back pain, but the location is not consistent with a liver or kidney source, suggesting a muscular origin, possibly related to workouts or weight gain. Regarding health maintenance, the patient has had two COVID-19 vaccines and a flu shot a few years ago. The patient's tetanus immunization is due every 10 years and may still be current from high school. The patient has seen a dentist in the last year but has not had a recent eye exam and reports blurry vision in the morning. Health Maintenance Immunization status was reviewed, including flu, COVID-19, and tetanus. Due to reports of blurry vision in the morning, a comprehensive eye exam with an home health clinician was strongly recommended. A follow-up visit is scheduled for three months to review progress on diet and exercise and to re-check labs. The patient was instructed to complete the repeat lab work prior to the next appointment. Social History - Alcohol Use: Drinks a few times per mo nth. - Exercise: The patient has stopped work ing out but previously engaged in weightlifting, including deadlifts. - Diet: Acknowledges a diet that include s foods high in cholesterol such as fried foods, red meat, pork, and shellfish. Results - CBC: White blood cell count is slightl y low. - Comprehensive Metabolic Panel (CMP): K idney function, electrolytes, calcium, and bilirubin are normal; one liver enzyme is elevated at 51 (range 0-40). - HbA1c: Normal. - Lipid Panel: Triglycerides 152 mg/dL, LDL cholesterol 137 mg/dL. - Vitamin D: Low. - Gluten sensitivity serology: Negative. - STD panel: Negative. - Urinalysis: Normal. 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 Depression Screening Interpretation: Negative Depression Screening Done: Yes Source: Developed by Drs. Jair Dumont, Rochelle Siddiqui, Mikhail Alonzo and colleagues, with an educational rasheeda from [employer]. Thrive Questionnaire Date Thrive assessed: 02/23/25 I am a: Patient What is your living situation today?: I have a steady place to live Within the past 12 months, did the food you bought not last and you didn't have the money to get more?: I choose not to answer this question Within the past 12 months, did you worry whether your food would run out before you got money to buy more?: I choose not to answer this question Do you have trouble paying for medicines?: I choose not to answer this question Do you have trouble getting transportation to medical appointments?: I choose not to answer this question Do you have trouble paying your heating and electricity bill?: I choose not to answer this question Do you have trouble taking care of your child, family member or friend?: I choose not to answer this question Do you have trouble with day-to-day activities such as bathing, preparing meals, shopping, managing finances, etc.?: No Are you currently unemployed and looking for a job?: I choose not to answer this question Are you interested in more education?: I choose not to answer this question Please select the resources that you would like help with: None Currently or been in a relationship where the following occur: I choose not to answer THRIVE Score: 0 AUDIT C Alcohol Use Questionnaire (AUDIT-C) 2. How many drinks containing alcohol do you have on a typical day when you are drinking?: 1 or 2 3. How often do you have six or more drinks on one occasion?: Never Total Score: 0 MARCELINA-7 AMB Questionnaire MARCELINA-7 Date MARCELINA - 7 assessed: 02/23/25 Source: Developed by Rober Clarket B.W. Artur, Mikhail Alonzo and colleagues, with an educational rasheeda from [employer]. Review of Systems Narrative Review of Systems - Constitutional: Reports recent weight gain. - Eyes: Reports blurry vision upon waking. - Gastrointestinal: Reports previous stomach issues which have since improved. - Musculoskeletal: Reports intermittent back pain. Const Denies headache(s) Eyes Denies loss of vision ENT Denies vertigo, Reports dizziness (After extensive workup), Denies headache(s) and Denies sore throat Card Denies chest pain, Denies leg edema and Denies lightheadedness Resp Denies cough, Denies hemoptysis and Denies wheezing GI Denies abdominal pain, Denies melena, Denies constipation, Denies diarrhea, Denies nausea and Denies vomiting Denies dysuria, Denies urinary frequency and Denies urinary urgency Musc Denies arthralgias, Denies joint swelling, Denies numbness and Denies tingling Neuro Denies Abnormal speech present, Denies behavioral changes, Denies vertigo, Reports dizziness (After extensive workup), Denies headache(s), Denies loss of vision, Denies memory loss, Denies numbness and Denies tingling Psych Denies anxiety, Denies behavioral changes, Denies depression, Denies memory loss and Denies panic attacks José/Lymph Denies easy bleeding and Denies easy bruising Aller/Immun Denies wheezing Physical exam (Primary Care) Vital Signs: Last Vital Signs Pulse 87 04/15/25 09:40 Resp 18 04/15/25 09:40 BP 126/68 04/15/25 09:40 Pulse Ox 96 04/15/25 09:40 Oxygen Delivery Method Room Air 04/15/25 09:40 BMI result Body Mass Index 29.1 Tobacco/Smoking Status: Tobacco use Status Tobacco use date assessed 04/15/25 04/15/25 09:44 Patient Tobacco Use Status Never used Tobacco 04/15/25 09:38 e-Cigarette/Vaping Use Never Used 04/15/25 09:38 Depression Screening Interpretation: Negative Thrive Assessment: Date of Thrive Assessment Date Thrive assessed 02/23/25 04/15/25 09:38 Currently or been in a relationship where the following occur: I choose not to answer Narrative Physical Exam - Lungs: Clear to auscultation bilaterally. - Abdomen/Back: Elicited mild tenderness on palpation of the back. Const General: healthy appearing, no acute distress, alert and awake Nutritional Appearance: well nourished Orientation/consciousness: oriented to person, oriented to place and oriented to time HENMT Ears: TM's normal bilaterally General nose exam: Normal nasal mucous membranes and turbinates present Eyes Conjunctivae: conjunctivae normal Sclerae: sclerae normal Pupils: Equal, round and reactive pupils present Neck Neck: Yes no lymphadenopathy and Yes no JVD Thyroid: Thyroid normal Carotids: no bruits Resp Effort & Inspection: normal respiratory effort and not tachypneic Auscultation: no crackles, no rales, no rhonchi and no wheezes Cardio Rate: regular rate Rhythm: regular rhythm Heart sounds: no murmurs and normal S1 and S2 GI Palpation (GI): Soft to palpation, nontender, no hepatomegaly and no splenomegaly Auscultation: normal bowel sounds General: Yes no CVA tenderness Back/Spine/Pelvis Back: no CVA tenderness Skin General skin exam: no rashes or lesions noted and dry skin Neuro General: oriented to person, oriented to place and oriented to time Cranial nerves: Yes Equal, round and reactive pupils present Speech: No Abnormal speech present Gait exam (Neuro): Normal gait present Motor exam (neuro): no tremor noted Deep tendon reflexes (DTR's): Right triceps reflex intensity grade: 2+, Left triceps reflex intensity grade: 2+, Rt Biceps (C5, C6): 2+, Left biceps reflex intensity grade: 2+, Right brachioradialis reflex intensity grade: 2+, Left brachioradialis reflex intensity grade: 2+, Right patellar reflex intensity grade: 2+ and Left patellar reflex intensity grade: 2+ Extrem Right upper extremity: full ROM Left upper extremity: full ROM Right lower extremity: full ROM; no edema Left lower extremity: full ROM; no edema Psych Mental Status: mental status grossly normal Speech and movement: Normal speech and movement present Affect: normal affect Attitude: cooperative Thought process: Normal thought process present Results Reviewed Results Reviewed: Laboratory Tests 02/24/25 02/24/25 09:08 09:14 WBC 4.5 L RBC 5.46 Hgb 16.6 Hct 48.0 MCV 87.9 MCH 30.4 MCHC 34.6 RDW 13.1 Plt Count 223 Sodium 142 Potassium 4.3 Chloride 106 Carbon Dioxide 29 Anion Gap 11 L BUN 14 Creatinine 0.90 Estimated GFR > 60 Fasting Glucose 96 Estimat Average Glucose 105 Hemoglobin A1c % 5.3 Calcium 9.6 Total Bilirubin 0.7 AST 25 ALT 51 H Alkaline Phosphatase 84 Total Protein 7.8 Albumin 4.9 Triglycerides 152 H Cholesterol 212 H LDL Cholesterol, Calc 137 H HDL Cholesterol 45 25-OH Vitamin D Total 19.7 L TSH 1.21 Urine Color Yellow Urine Appearance Clear Urine pH 7.0 Ur Specific [place] 1.025 Urine Protein Negative Urine Glucose (UA) Negative Urine Ketones Negative Urine Blood Negative Urine Nitrite Negative Ur Leukocyte Esterase Negative Ur N gonorrhoeae DNA (PCR) NOT DETECTED Tiss Transglutamin IgG <1.0 T.pallidum Ab (EIA) Nonreactive Ur Chlamydia DNA (PCR) NOT DETECTED HIV 1&2 Ab/P24 Ag 4thGn Nonreactive Coding Level of Care Code Est Pt Prev Care 18-39y(86232) Diagnoses Annual physical exam Z00.00 Dizziness R42 Postprandial vomiting R11.10 Postprandial abdominal bloating R14.0 Proteinuria, unspecified type R80.9 Proteinuria type: unspecified Screening for STDs (sexually transmitted diseases) Z11.3 Mixed hyperlipidemia E78.2 Hyperlipidemia type: mixed hyperlipidemia Elevated liver enzymes R74.8 Leukopenia, unspecified type D72.819 Leukopenia type: unspecified Vitamin D deficiency E55.9 Bilateral low back pain without sciatica, unspecified chronicity M54.50 Chronicity: unspecified Back pain laterality: bilateral Sciatica presence: without sciatica Time Spent (min) 37 Assessment & Plan Assessment & Plan (1) Annual physical exam: Code(s): Z00.00 - Encounter for general adult medical examination without abnormal findings Category: Medical Plan: Preventative guidelines and recent labs reviewed with the patient (2) Dizziness: Code(s): R42 - Dizziness and giddiness Category: Medical Plan: The patient reports dizziness after extensive workouts at previous visit. Denies being dizzy in other situations. Denies any associated symptoms. Expressed to the patient that this could be due to dehydration if he is not well hydrated while working out. The patient admits that he could drink more water. Reports that he has not been working out lately. We will continue to monitor. (3) Postprandial vomiting: Code(s): R11.10 - Vomiting, unspecified Category: Medical Plan: The patient experiences nausea and vomiting with certain foods, and omeprazole was prescribed to address possible acid reflux. The patient denies vomiting, reports that the medication has been working and he feels significantly better. Continue omeprazole 40 mg daily. (4) Postprandial abdominal bloating: Code(s): R14.0 - Abdominal distension (gaseous) Category: Medical Plan: Discussed with the patient extensively about FODMAP diet. Patient was negative for gluten sensitivity. He also reports resolution of symptoms since started on omeprazole. (5) Proteinuria: Code(s): R80.9 - Proteinuria, unspecified Category: Medical Qualifiers: Proteinuria type: unspecified Qualified Code(s): R80.9 - Proteinuria, unspecified Plan: No protein in the patient current urine. Labs were negative for diabetes and the patient kidney function is within normal limits. We will continue to monitor (6) Screening for STDs (sexually transmitted diseases): Code(s): Z11.3 - Encounter for screening for infections with a predominantly sexual mode of transmission Category: Medical Plan: STD tests ordered at previous visit all came back negative. (7) HLD (hyperlipidemia): Code(s): E78.5 - Hyperlipidemia, unspecified Category: Medical Qualifiers: Hyperlipidemia type: mixed hyperlipidemia Qualified Code(s): E78.2 - Mixed hyperlipidemia Plan: The patient has a mildly elevated liver enzyme at 51, which is suspected to be related to recent weight gain and hyperlipidemia. The plan is to repeat labs in three months, at which time additional tests such as an iron panel will be added to rule out other potential causes. It is expected that if weight loss and cholesterol improvement occur, the liver enzymes will normalize. (8) Elevated liver enzymes: Code(s): R74.8 - Abnormal levels of other serum enzymes Category: Medical Plan: The patient has a mildly elevated liver enzyme at 51, which is suspected to be related to recent weight gain and hyperlipidemia. The plan is to repeat labs in three months, at which time additional tests such as an iron panel will be added to rule out other potential causes. It is expected that if weight loss and cholesterol improvement occur, the liver enzymes will normalize. (9) WBC decreased: Code(s): D72.819 - Decreased white blood cell count, unspecified Category: Medical Qualifiers: Leukopenia type: unspecified Qualified Code(s): D72.819 - Decreased white blood cell count, unspecified Plan: encouraged adequate hydration will monitor cbc (10) Vitamin D deficiency: Code(s): E55.9 - Vitamin D deficiency, unspecified Category: Medical Plan: The patient has a low vitamin D level. This is an easily correctable issue, and the patient was advised to take [id number]-[id number] vitamin D supplements. (11) Low back pain: Code(s): M54.50 - Low back pain, unspecified Category: Medical Qualifiers: Chronicity: unspecified Back pain laterality: bilateral Sciatica presence: without sciatica Qualified Code(s): M54.50 - Low back pain, unspecified Plan: The patient reports back pain, which is assessed to be likely musculoskeletal or from muscle strain, possibly from improper exercise mechanics or weight gain. Advised to focus on proper stretching, hydration, and to avoid exercises that place pressure on the back, such as deadlifts. Recommended taking magnesium oxide 400 mg at night to help with muscle relaxation and sleep. Plan Plan Patient was informed and verbally consented to the use of an ambient scribe for clinic note documentation during this visit. 1. Hyperlipidemia The patient's LDL cholesterol is elevated at 137 mg/dL and triglycerides are 152 mg/dL. The plan is to manage this with dietary changes to avoid starting medication, given the patient's young age. Counseled the patient to limit foods high in cholesterol, such as fried foods, red meat, pork, and shellfish, and provided a food list. A repeat lipid panel will be checked in three months to monitor progress. 2. Elevated Liver Enzymes The patient has a mildly elevated liver enzyme at 51, which is suspected to be related to recent weight gain and hyperlipidemia. The plan is to repeat labs in three months, at which time additional tests such as an iron panel will be added to rule out other potential causes. It is expected that if weight loss and cholesterol improvement occur, the liver enzymes will normalize. 3. Vitamin D Deficiency The patient has a low vitamin D level. This is an easily correctable issue, and the patient was advised to take ftmf-jkh-mbeyrig vitamin D supplements. 4. Back Pain The patient reports back pain, which is assessed to be likely musculoskeletal or from muscle strain, possibly from improper exercise mechanics or weight gain. Advised to focus on proper stretching, hydration, and to avoid exercises that place pressure on the back, such as deadlifts. Recommended taking magnesium oxide 400 mg at night to help with muscle relaxation and sleep. 5. Gastrointestinal Distress The patient's prior stomach issues have improved, and testing for gluten sensitivity was negative. To identify any remaining dietary triggers, the patient was counseled on following a low-FODMAP diet. The patient was instructed to eliminate food items known to cause symptoms and then reintroduce them one by one to pinpoint sensitivities. Discussion Notes I reviewed the patient's lab results in detail, focusing on the elevated liver enzymes, high cholesterol, and low vitamin D. I explained that the liver enzyme elevation is most likely related to the recent weight gain and high cholesterol, and we will do further testing in three months to ensure no other cause is missed. I emphasized that dietary modification is the preferred first step for managing the high cholesterol, given the patient's age, to avoid the need for medication. I provided a list of high-cholesterol foods to reduce. We discussed the low-FODMAP diet as a method to identify triggers for gastrointestinal symptoms, and I instructed the patient on how to perform the elimination and reintroduction process. I also recommended vitamin D supplements for the deficiency and magnesium at night for muscle relaxation related to back pain. I strongly recommended a visit to an home health clinician for a comprehensive eye exam due to the patient's report of blurry vision, explaining the importance of proactive care. We scheduled a follow-up appointment in three months, with repeat labs to be drawn beforehand to track the patient's progress. Patient Instructions - Make dietary changes to lower your cholesterol. - Avoid or limit fried foods, red meat, pork, egg yolks, and shellfish. - Take an ucui-gnv-clqkkrh vitamin D supplement daily. - To help with back muscle soreness, you can take magnesium oxide 400 mg at night. - For your stomach issues, Google low-FODMAP diet and follow the instructions to find out which foods might be causing your symptoms. - Schedule an eye exam with an home health clinician because you mentioned your vision is blurry in the morning. - Resume exercise, focusing on cardio, stretching, and staying hydrated. - Return for a follow-up visit in 3 months. - Please get your blood tests done before your next appointment so we can review the results together. Orders: Orders Comprehensive [place]. Panel Fast 3 Months D72.819 - Decreased white blood cell count, unspecified, E78.5 - Hyperlipidemia, unspecified, R11.10 - Vomiting, unspecified, R14.0 - Abdominal distension (gaseous), R74.8 - Abnormal levels of other serum enzymes Vitamin D 25-OH Total 3 Months D72.819 - Decreased white blood cell count, unspecified, E78.5 - Hyperlipidemia, unspecified, R11.10 - Vomiting, unspecified, R14.0 - Abdominal distension (gaseous), R74.8 - Abnormal levels of other serum enzymes Ferritin 3 Months D72.819 - Decreased white blood cell count, unspecified, E78.5 - Hyperlipidemia, unspecified, R11.10 - Vomiting, unspecified, R14.0 - Abdominal distension (gaseous), R74.8 - Abnormal levels of other serum enzymes Ceruloplasmin 3 Months D72.819 - Decreased white blood cell count, unspecified, E78.5 - Hyperlipidemia, unspecified, R11.10 - Vomiting, unspecified, R14.0 - Abdominal distension (gaseous), R74.8 - Abnormal levels of other serum enzymes Lipid Panel 3 Months D72.819 - Decreased white blood cell count, unspecified, E78.5 - Hyperlipidemia, unspecified, R11.10 - Vomiting, unspecified, R14.0 - Abdominal distension (gaseous), R74.8 - Abnormal levels of other serum enzymes Complete Blood Count Auto Diff 3 Months D72.819 - Decreased white blood cell count, unspecified, E78.5 - Hyperlipidemia, unspecified, R11.10 - Vomiting, unspecified, R14.0 - Abdominal distension (gaseous), R74.8 - Abnormal levels of other serum enzymes UA CC w/rflx Micro + Cult 3 Months D72.819 - Decreased white blood cell count, unspecified, E78.5 - Hyperlipidemia, unspecified, R11.10 - Vomiting, unspecified, R14.0 - Abdominal distension (gaseous), R74.8 - Abnormal levels of other serum enzymes TSH reflex Free T4 3 Months D72.819 - Decreased white blood cell count, unspecified, E78.5 - Hyperlipidemia, unspecified, R11.10 - Vomiting, unspecified, R14.0 - Abdominal distension (gaseous), R74.8 - Abnormal levels of other serum enzymes Hepatitis A,B,C Profile 3 Months D72.819 - Decreased white blood cell count, unspecified, E78.5 - Hyperlipidemia, unspecified, R11.10 - Vomiting, unspecified, R14.0 - Abdominal distension (gaseous), R74.8 - Abnormal levels of other serum enzymes Patient Instructions: Follow up in 3 months
[2025-04-15 09:40] VITALS: BP 126/68; PULSE 87; RESP 18; O2SAT 96; BMI 29.1
== END 2025-04-15 10:15 | disposition home or self-care (01) ==
LOC: HO.HMCH 09:15
DX: Z00.00 Encounter for general adult medical examination without abnormal findings (principal); R42 Dizziness and giddiness; R11.10 Vomiting, unspecified; R14.0 Abdominal distension (gaseous); R80.9 Proteinuria, unspecified; Z11.3 Encounter for screening for infections with a predominantly sexual mode of transmission; E78.2 Mixed hyperlipidemia; R74.8 Abnormal levels of other serum enzymes; D72.819 Decreased white blood cell count, unspecified; E55.9 Vitamin D deficiency, unspecified; M54.50 Low back pain, unspecified